=== PATIENT | female | born 1980 | race Caucasian/White ===

== ENCOUNTER → 2023-05-05 15:21 | Outpatient (REF) | payer BC, SELFPAY | LOC: RAD 15:21 | PROVIDERS: ATTENDING PHYSICIAN Internal Medicine Gastroenterology; FAMILY PHYSICIAN Family Medicine | DX: R10.32 Left lower quadrant pain (principal); K92.89 Other specified diseases of the digestive system; D68.61 Antiphospholipid syndrome | CPT/HCPCS: 74177; Q9967 ==

== ENCOUNTER → 2023-11-27 09:55 | Outpatient (REF) | payer BC, SELFPAY | LOC: HWRAD 09:55 | PROVIDERS: ATTENDING PHYSICIAN Internal Medicine | DX: R05.1 Acute cough (principal) | CPT/HCPCS: 71046 ==